=== PATIENT | male | born 1990 | race American Indian/Alaskan Native ===

== ENCOUNTER 2020-12-28 06:37 | Emergency (ER) | payer OTHER ==
--- NOTE | 2020-12-28 07:15 | Emergency Department Report ---
ED Abdominal Pain HPI - General Chief Complaint: Abdominal Pain Stated Complaint: ABD PAIN/FLANK PAIN PUI?: No Time Seen by Provider: 12/28/20 07:12 Source: patient, RN notes reviewed Mode of arrival: Ambulatory Limitations: No Limitations - History of Present Illness Initial Comments: The patient was evaluated in the emergency department for symptoms described in the history of present illness. He/she was evaluated in the context of the global COVID-19 pandemic, which necessitated consideration that the patient might be at risk for infection with the virus that causes COVID-19. Institutional protocols and algorithms that pertain to the evaluation of patients at risk for COVID-19 are in a state of rapid change based on information released by regulatory bodies including the CDC and federal and state organizations. These policies and algorithms were followed during the patient's care in the emergency department. Please note that these policies, procedures and recommendations changed on a rapid basis. The patient is a 30-year-old gentleman, with a history of renal colic, who is not known to myself previously, who presents to the ER today with a complaint of his typical renal colic. He reports some dietary indiscretions this weekend, including decreased water intake, increased salt intake, and some recreational alcohol. He presents today with nontraumatic right flank pain, which he states is exactly similar to his prior episodes of renal colic. He denies dysuria testicular pain, right lower quadrant pain fevers and chills. He denies additional injuries and complaints. MD Complaint: flank pain -: Gradual, hour(s) Location: R flank Radiation: R flank Consistency: intermittent Improves With: nothing Worsens With: nothing Associated Symptoms: nausea - Related Data Previous Rx's Medication Instructions Recorded Last Taken Type Acetaminophen [Non-Aspirin Extra 500 mg PO Q6HR PRN #30 tablet 12/28/20 Unknown Rx Strength] Ketorolac [Toradol] 10 mg PO Q6H PRN #20 tablet 12/28/20 Unknown Rx Morphine Sulfate [Morphine Sulfate 7.5 mg PO Q6HR PRN #10 tablet 12/28/20 Unknown Rx IR] Ondansetron [Zofran Odt] 4 mg PO Q8HR PRN #20 tab.rapdis 12/28/20 Unknown Rx Tamsulosin [Flomax] 0.4 mg PO QHS #30 cap 12/28/20 Unknown Rx Allergies Allergy/AdvReac Type Severity Reaction Status Date / Time No Known Allergies Allergy Verified 12/28/20 06:43 ED Review of Systems ROS: Stated complaint: ABD PAIN/FLANK PAIN Other details as noted in HPI Constitutional: denies: fever ENT: denies: epistaxis Respiratory: denies: cough Cardiovascular: denies: chest pain Gastrointestinal: abdominal pain, nausea. denies: vomiting Genitourinary: denies: urgency, dysuria, testicular pain, testicular mass Musculoskeletal: back pain Neurological: denies: weakness ED Past Medical Hx - Past Medical History Previous Medical History?: Yes Additional medical history: kidney stones - Surgical History Past Surgical History?: No - Social History Smoking Status: Former Smoker Substance Use Type: None - Medications Home Medications: Home Medications Medication Instructions Recorded Confirmed Last Taken Type Acetaminophen [Non-Aspirin Extra 500 mg PO Q6HR PRN #30 tablet 12/28/20 Unknown Rx Strength] Ketorolac [Toradol] 10 mg PO Q6H PRN #20 tablet 12/28/20 Unknown Rx Morphine Sulfate [Morphine Sulfate 7.5 mg PO Q6HR PRN #10 tablet 12/28/20 Unknown Rx IR] Ondansetron [Zofran Odt] 4 mg PO Q8HR PRN #20 tab.rapdis 12/28/20 Unknown Rx Tamsulosin [Flomax] 0.4 mg PO QHS #30 cap 12/28/20 Unknown Rx ED Physical Exam - General Limitations: No Limitations General appearance: alert, anxious, in distress, obese - Head Head exam: Present: atraumatic, normocephalic - Eye Eye exam: Present: normal appearance, EOMI. Absent: nystagmus - ENT ENT exam: Present: normal exam, normal orophraynx, mucous membranes moist, normal external ear exam - Neck Neck exam: Present: normal inspection, full ROM. Absent: tenderness, meningismus - Respiratory Respiratory exam: Present: normal lung sounds bilaterally. Absent: respiratory distress, wheezes, rales, rhonchi, stridor, decreased breath sounds - Cardiovascular Cardiovascular Exam: Present: regular rate, normal rhythm, normal heart sounds. Absent: bradycardia, tachycardia, irregular rhythm, systolic murmur, diastolic murmur, rubs, gallop - GI/Abdominal GI/Abdominal exam: Present: soft. Absent: distended, tenderness, guarding, rebound, rigid, pulsatile mass - Rectal Rectal exam: Present: deferred - Extremities Exam Extremities exam: Present: normal inspection, full ROM, other (2+ pulses noted in the bilateral upper and lower extremities. There is no palpable cord. negative Homans sign. Muscular compartments are soft. The pelvis is stable.). Absent: pedal edema, calf tenderness - Back Exam Back exam: Present: normal inspection, full ROM, CVA tenderness (R). Absent: tenderness, CVA tenderness (L), paraspinal tenderness, vertebral tenderness - Neurological Exam Neurological exam: Present: alert, oriented X3, normal gait, other (No facial droop. Tongue midline. Extraocular movements intact bilaterally. Facial sensation intact to light touch in V1, V2, V3 distribution bilaterally. 5 and a 5 strength in 4 extremities. Sensation intact to light touch in 4 extremities.). Absent: motor sensory deficit - Psychiatric Psychiatric exam: Present: anxious - Skin Skin exam: Present: warm, dry, intact, normal color. Absent: rash ED Course Vital Signs 12/28/20 12/28/20 12/28/20 06:45 06:51 08:05 Temperature 98 F Pulse Rate 63 Respiratory 16 Rate Blood Pressure 147/113 Blood Pressure 151/100 [Left] O2 Sat by Pulse 98 99 Oximetry 12/28/20 08:20 Temperature Pulse Rate Respiratory 18 Rate Blood Pressure Blood Pressure [Left] O2 Sat by Pulse Oximetry - Reevaluation(s) Reevaluation #1: 12/28/20 07:47 Differential diagnosis, including not limited to: Renal colic, mechanical back pain Assessment and plan: 30-year-old gentleman, who was afebrile, with reassuring vital signs, clinically sober, with no pulsatile abdominal mass, no right lower quadrant tenderness, no testicular pain, presenting with his episodes of typical renal colic, in the context of dietary indiscretions over the weekend. We will treat his pain aggressively, and obtain a screening urinalysis. Patient prefers to not have CT scan of the abdomen pelvis out of concern for radiation, and I think that this is reasonable. Through current renal colic choosing wisely recommendations, and through shared decision-making, we agreed to treat his pain aggressively, obtain urinalysis, and reassess. 12/28/20 09:00 Reassessed. Patient endorses complete resolution of symptoms. He is currently on his cellular phone. I instructed this patient to contact [place] [facility] kidney stone hotline, to obtain expedited outpatient follow-up. He is doing so at this time. Urinalysis consistent with renal colic, without bacteriuria. Belly soft on repeat examination. He endorses readiness for discharge. Return precautions are reviewed. The patient will be discharged with instructions to follow-up as an outpatient. ED Medical Decision Making - Lab Data Vital Signs 12/28/20 12/28/20 12/28/20 06:45 06:51 08:05 Temperature 98 F Pulse Rate 63 Respiratory 16 Rate Blood Pressure 147/113 Blood Pressure 151/100 [Left] O2 Sat by Pulse 98 99 Oximetry 12/28/20 08:20 Temperature Pulse Rate Respiratory 18 Rate Blood Pressure Blood Pressure [Left] O2 Sat by Pulse Oximetry Lab Results 12/28/20 Range/Units 08:10 Urine Color Yellow (Yellow) Urine Turbidity Slightly-cloudy (Clear) Urine pH 7.0 (5.0-7.0) Ur Specific [place] 1.018 (1.003-1.030) Urine Protein 30 mg/dl (Negative) mg/dL Urine Glucose (UA) Neg (Negative) mg/dL Urine Ketones Neg (Negative) mg/dL Urine Blood Lg (Negative) Urine Nitrite Neg (Negative) Urine Bilirubin Neg (Negative) Urine Urobilinogen < 2.0 (<2.0) mg/dL Ur Leukocyte Esterase Neg (Negative) Urine WBC (Auto) 13.0 H (0.0-6.0) /HPF Urine RBC (Auto) > 182.0 (0.0-6.0) /HPF Critical care attestation.: If time is entered above; I have spent that time in minutes in the direct care of this critically ill patient, excluding procedure time. ED Disposition Clinical Impression: Right flank pain Disposition: 01 HOME / SELF CARE / HOMELESS Is pt being admited?: No Does the pt Need Aspirin: No Condition: Stable Instructions: Renal Colic, [id number] Additional Instructions: Please take the pain medication, nausea medication and Flomax medication as needed and directed. Take Flomax medication at night, as this might make you dizzy and/or lightheaded. Drink 6 cups of water per day, and avoid consumption of heavy, spicy foods, excessive salt, tobacco and alcohol. Please follow-up with a urologist within the next 3 to 5 days. Please return to the emergency room right away with new pain, worsened pain, migration of pain, projectile vomiting, change in mental status, confusion, inability to tolerate liquid feeds, new, worsened or different symptoms not present on the initial emergency room evaluation, fevers and chills Prescriptions: Tamsulosin [Flomax] 0.4 mg PO QHS #30 cap Morphine Sulfate [Morphine Sulfate IR] 7.5 mg PO Q6HR PRN #10 tablet PRN Reason: Pain , Severe (7-10) Acetaminophen [Non-Aspirin Extra Strength] 500 mg PO Q6HR PRN #30 tablet PRN Reason: Pain , Severe (7-10) Ketorolac [Toradol] 10 mg PO Q6H PRN #20 tablet PRN Reason: Pain Ondansetron [Zofran Odt] 4 mg PO Q8HR PRN #20 tab.rapdis PRN Reason: Nausea Referrals: [facility] [Provider Group] - 3-5 Days
[2020-12-28] MEDS ORDERED: ONDANSETRON 4 MG/2 ML INJ IV ONE (07:30)
[2020-12-28] MEDS ORDERED: LACTATED RINGERS 1,000 ML IV ONE (07:30)
[2020-12-28] MEDS ORDERED: HYDROmorphone 1 MG/1 ML INJ IV ONE (07:30)
[2020-12-28] MEDS ORDERED: KETOROLAC 30 MG/1 ML INJ IV ONE (07:30)
[2020-12-28 08:06] VITALS: BP 151/100
[2020-12-28 08:32] LABS: Bilirubin,Urine NEG (Negative); Blood,Urine LG (Negative); Color,Urine Yellow (Yellow); Urobilinogen,Urine < 2.0 mg/dL (<2.0)
[2020-12-28 08:33] LABS: RBC,Urine > 182.0 /HPF (0.0-6.0)
== END 2020-12-28 10:03 | disposition home or self-care (01) ==
LOC: ED 06:37
DX: R10.9 Unspecified abdominal pain (principal); Z87.442 Personal history of urinary calculi; Z87.891 Personal history of nicotine dependence
CPT/HCPCS: 81001; 87086; 96361; 96374; 96375; 99283; J1170; J1885; J2405; J7120

== ENCOUNTER 2021-04-07 11:21 | Emergency (ER) | payer OTHER ==
[2021-04-07] MEDS ORDERED: ONDANSETRON 4 MG/2 ML INJ IV ONE (11:33)
[2021-04-07] MEDS ORDERED: MORPHINE 4 MG/1 ML INJ IV ONE (11:33)
--- NOTE | 2021-04-07 11:44 | Emergency Department Report ---
ED General Adult HPI - General Chief complaint: Abdominal Pain Stated complaint: kidney stones Time Seen by Provider: 04/07/21 11:25 Source: patient Mode of arrival: Ambulatory Limitations: No Limitations - History of Present Illness Initial comments: 31-year-old -[place] male patient presents with complaints of sudden onset of left flank pain radiating to his left abdomen starting around 9 AM this morning. He has history of kidney stones and states this pain feels similar. He denies any fever/chills/sweats, nausea/vomiting/diarrhea, chest pain, or dysuria. He does admit to some hematuria yesterday that resolved. No penile discharge or testicular pain/swelling per patient. He is not currently following with a urologist. - Related Data Previous Rx's Medication Instructions Recorded Last Taken Type Acetaminophen [Non-Aspirin Extra 500 mg PO Q6HR PRN #30 tablet 12/28/20 Unknown Rx Strength] Ketorolac [Toradol] 10 mg PO Q6H PRN #20 tablet 12/28/20 Unknown Rx Morphine Sulfate [Morphine Sulfate 7.5 mg PO Q6HR PRN #10 tablet 12/28/20 Unknown Rx IR] Ondansetron [Zofran Odt] 4 mg PO Q8HR PRN #20 tab.rapdis 12/28/20 Unknown Rx Tamsulosin [Flomax] 0.4 mg PO QHS #30 cap 12/28/20 Unknown Rx HYDROcodone/APAP 7.5-325 [Equinunk 1 each PO Q6HR PRN #15 tablet 04/07/21 Unknown Rx 7.5/325] Ondansetron [Zofran Odt] 4 mg PO Q8HR PRN #15 tab.rapdis 04/07/21 Unknown Rx Tamsulosin [Flomax] 0.4 mg PO QDAY #5 cap 04/07/21 Unknown Rx Allergies Allergy/AdvReac Type Severity Reaction Status Date / Time No Known Allergies Allergy Verified 12/28/20 06:43 ED Review of Systems ROS: Stated complaint: kidney stones Other details as noted in HPI Constitutional: denies: chills, fever, malaise Respiratory: denies: cough, shortness of breath Cardiovascular: denies: chest pain Gastrointestinal: abdominal pain. denies: nausea, vomiting, diarrhea, constipation Genitourinary: frequency, hematuria. denies: urgency, dysuria, discharge Neurological: denies: headache ED Past Medical Hx - Past Medical History Additional medical history: kidney stones - Social History Smoking Status: Former Smoker Substance Use Type: None - Medications Home Medications: Home Medications Medication Instructions Recorded Confirmed Last Taken Type Acetaminophen [Non-Aspirin Extra 500 mg PO Q6HR PRN #30 tablet 12/28/20 Unknown Rx Strength] Ketorolac [Toradol] 10 mg PO Q6H PRN #20 tablet 12/28/20 Unknown Rx Morphine Sulfate [Morphine Sulfate 7.5 mg PO Q6HR PRN #10 tablet 12/28/20 Unknown Rx IR] Ondansetron [Zofran Odt] 4 mg PO Q8HR PRN #20 tab.rapdis 12/28/20 Unknown Rx Tamsulosin [Flomax] 0.4 mg PO QHS #30 cap 12/28/20 Unknown Rx HYDROcodone/APAP 7.5-325 [Equinunk 1 each PO Q6HR PRN #15 tablet 04/07/21 Unknown Rx 7.5/325] Ondansetron [Zofran Odt] 4 mg PO Q8HR PRN #15 tab.rapdis 04/07/21 Unknown Rx Tamsulosin [Flomax] 0.4 mg PO QDAY #5 cap 04/07/21 Unknown Rx ED Physical Exam - General Limitations: No Limitations General appearance: alert, in no apparent distress - Head Head exam: Present: atraumatic, normocephalic - Eye Eye exam: Present: normal appearance. Absent: scleral icterus - Neck Neck exam: Present: normal inspection - Respiratory Respiratory exam: Present: normal lung sounds bilaterally. Absent: respiratory distress - Cardiovascular Cardiovascular Exam: Present: regular rate, normal rhythm - GI/Abdominal GI/Abdominal exam: Present: soft, normal bowel sounds. Absent: distended, tenderness, guarding, rebound, rigid - Back Exam Back exam: Present: CVA tenderness (L). Absent: CVA tenderness (R) - Neurological Exam Neurological exam: Present: alert, oriented X3, normal gait - Psychiatric Psychiatric exam: Present: normal affect, normal mood - Skin Skin exam: Present: warm, dry, intact, normal color. Absent: rash, cyanosis, d iaphoretic ED Course Vital Signs 04/07/21 04/07/21 04/07/21 11:31 12:55 14:04 Temperature 98.8 F 99.0 F Pulse Rate 89 71 Respiratory 19 14 14 Rate Blood Pressure 181/127 Blood Pressure 161/105 [Right] O2 Sat by Pulse 97 97 Oximetry ED Medical Decision Making - Lab Data Result diagrams: 04/07/21 11:50 04/07/21 11:50 - Radiology Data Radiology results: report reviewed CT ABDOMEN AND PELVIS WITHOUT CONTRAST INDICATION / CLINICAL INFORMATION: left flank pain. TECHNIQUE: Axial CT images were obtained through the abdomen and pelvis without IV contrast. Sagittal and coronal reformatted images. All CT scans at this location are performed using CT dose reduction for ALARA by means of automated exposure control. COMPARISON: None available. FINDINGS: LOWER CHEST: No significant abnormality. LIVER: No significant abnormality. GALLBLADDER: No significant abnormality. BILE DUCTS: No significant abnormality. PANCREAS: No significant abnormality. SPLEEN: No significant abnormality. ADRENALS: No significant abnormality. RIGHT KIDNEY and URETER: 3 or 4 calyceal stones are identified in the right kidney measuring up to 3 mm. No focal renal lesion, ureteral stone or hydronephrosis. LEFT KIDNEY and URETER: 3 or 4 small calyceal stones are identified measuring up to 2 mm. A 3.4 mm calculus is identified in the proximal left ureter resulting in mild upstream left hydronephrosis. No focal renal lesion. STOMACH and SMALL BOWEL: No significant abnormality. COLON: No significant abnormality. APPENDIX: No significant abnormality. PERITONEUM: No free fluid. No free air. No fluid collection. LYMPH NODES: No significant adenopathy. AORTA and ARTERIES: No significant abnormality. IVC and VEINS: No significant abnormality. URINARY BLADDER: No significant abnormality. REPRODUCTIVE ORGANS: No significant abnormality. ADDITIONAL FINDINGS: Small umbilical hernia containing fat. SKELETAL SYSTEM: No significant abnormality. IMPRESSION: Bilateral nephrolithiasis as described. 3.4 mm calculus in the proximal left ureter, mildly obstructing. - Medical Decision Making 31-year-old -[place] male patient presents with complaints of sudden onset of left flank pain radiating to his left abdomen starting around 9 AM this morning. He has history of kidney stones and states this pain feels similar. He denies any fever/chills/sweats, nausea/vomiting/diarrhea, chest pain, or dysuria. He does admit to some hematuria yesterday that resolved. No penile discharge or testicular pain/swelling per patient. He is not currently following with a urologist. Proximal 3 mm kidney stone noted in left ureter with mild hydronephrosis on CT scan. UA negative for infection. No white count or kidney dysfunction is noted. Pain is controlled. Patient's blood pressure noted to be elevated, he denies history of hypertension. I do recommend patient follows up with primary care within 2 to 3 days for blood pressure recheck and advise diet and exercise. He is well-appearing and stable for discharge home otherwise. Strict return precautions were discussed in great detail with patient who verbalizes understanding Critical care attestation.: If time is entered above; I have spent that time in minutes in the direct care of this critically ill patient, excluding procedure time. ED Disposition Clinical Impression: Left renal stone, Elevated blood pressure reading without diagnosis of hyperte nsion Disposition: HOME / SELF CARE / HOMELESS Is pt being admited?: No Condition: Stable Instructions: Low-Purine Eating Plan, Kidney Stones, [id number], Hypertension, Adult Prescriptions: Tamsulosin [Flomax] 0.4 mg PO QDAY #5 cap HYDROcodone/APAP 7.5-325 [Equinunk 7.5/325] 1 each PO Q6HR PRN #15 tablet PRN Reason: Pain Ondansetron [Zofran Odt] 4 mg PO Q8HR PRN #15 tab.rapdis PRN Reason: Nausea Referrals: JOSEP CORDERO MD [Staff Physician] - 3-5 Days [facility] [Provider Group] - 2-3 Days Forms: Work/School Release Form(ED)
[2021-04-07 12:22] LABS: Hematocrit 46.3 % (35.5-45.6); Hemoglobin 15.2 gm/dl (11.8-15.2); Mean Corpuscular HGB Conc 33 % (32-34); Mean Corpuscular Volume 90 fl (84-94); Platelet Count 227 K/mm3 (140-440); Red Blood Count 5.12 M/mm3 (3.65-5.03); Red Cell Distribution Width 12.4 % (13.2-15.2)
[2021-04-07 12:23] LABS: Alanine Aminotransferase 21 units/L (7-56); Albumin 4.6 g/dL (3.9-5); BUN/Creatinine Ratio 16; Blood Urea Nitrogen 16 mg/dL (9-20); Calcium 9.6 mg/dL (8.4-10.2); Hemolysis Index 18
--- NOTE | 2021-04-07 12:30 | Cat Scan Report ---
CT ABDOMEN AND PELVIS WITHOUT CONTRAST INDICATION / CLINICAL INFORMATION: left flank pain. TECHNIQUE: Axial CT images were obtained through the abdomen and pelvis without IV contrast. Sagittal and hernandez l reformatted images. All CT scans at this location are performed using CT dose reduction for ALARA b y means of automated exposure control. COMPARISON: None available. FINDINGS: LOWER CHEST: No significant abnormality. LIVER: No significant abnormality. GALLBLADDER: No significant abnormality. BILE DUCTS: No significant abnormality. PANCREAS: No significant abnormality. SPLEEN: No significant abnormality. ADRENALS: No significant abnormality. RIGHT KIDNEY and URETER: 3 or 4 calyceal stones are identified in the right kidney measuring up to 3 mm. No focal renal lesion, ureteral stone or hydronephrosis. LEFT KIDNEY and URETER: 3 or 4 small calyceal stones are identified measuring up to 2 mm. A 3.4 mm ca lculus is identified in the proximal left ureter resulting in mild upstream left hydronephrosis. No f ocal renal lesion. STOMACH and SMALL BOWEL: No significant abnormality. COLON: No significant abnormality. APPENDIX: No significant abnormality. PERITONEUM: No free fluid. No free air. No fluid collection. LYMPH NODES: No significant adenopathy. AORTA and ARTERIES: No significant abnormality. IVC and VEINS: No significant abnormality. URINARY BLADDER: No significant abnormality. REPRODUCTIVE ORGANS: No significant abnormality. ADDITIONAL FINDINGS: Small umbilical hernia containing fat. SKELETAL SYSTEM: No significant abnormality. IMPRESSION: Bilateral nephrolithiasis as described. 3.4 mm calculus in the proximal left ureter, mildly obstructi ng. Signer Name: Benjamin Banks Jr, MD Signed: 04/07/2021 12:26 PM Workstation Name: [id number]
[2021-04-07] MEDS ORDERED: KETOROLAC 30 MG/1 ML INJ IV ONE (13:22)
[2021-04-07 14:04] LABS: Bilirubin,Urine NEG (Negative); Blood,Urine LG (Negative); Color,Urine Yellow (Yellow); Mucus,Urine FEW /HPF; Urobilinogen,Urine < 2.0 mg/dL (<2.0)
[2021-04-07 14:22] LABS: RBC,Urine > 182.0 /HPF (0.0-6.0); WBC,Urine < 1.0 /HPF (0.0-6.0)
[2021-04-07] MEDS ORDERED: KETOROLAC 10 MG TAB PO ONE (14:50)
[2021-04-07 15:19] VITALS: BP 127/85
[2021-04-07 16:53] LABS: Eosinophils # (Auto) 0.6 K/mm3 (0.0-0.4); Eosinophils % (Auto) 10.3 % (0.0-4.3); Lymphocytes # (Auto) 2.2 K/mm3 (1.2-5.4); Monocytes # (Auto) 0.7 K/mm3 (0.0-0.8)
[2021-04-07 17:31] LABS: Basophils % (Auto) 3.5 % (0.0-1.8)
== END 2021-04-07 15:18 | disposition home or self-care (01) ==
LOC: ED 11:21
DX: N20.0 Calculus of kidney (principal); R03.0 Elevated blood-pressure reading, without diagnosis of hypertension; Z87.891 Personal history of nicotine dependence; Z79.899 Other long term (current) drug therapy
CPT/HCPCS: 36415; 74176; 80053; 81001; 83690; 85025; 96374; 96375; 99284; J2270; J2405